=== PATIENT | male | born 1995 | race Hispanic/Latino ===

== ENCOUNTER 2020-03-12 14:03 | Outpatient (CLI) | payer OTHER, SELFPAY ==
--- NOTE | ~2020-03-12 | US_ITS ---
EXAMINATION: US soft tissue head and neck EXAM DATE: 03/12/2020 14:49 INDICATION: Cervical lymphadenopathy. Abnormal dental x-ray. TECHNIQUE: Multiple grayscale and Doppler images of the left side of the neck were obtained (by a eleazar hnologist who performed the scan) and subsequently reviewed. There is no prior study for comparison. FINDINGS: Several hypoechoic lesions most likely lymph nodes, measuring 1.6 x 0.7 x 1.3 cm, 2.7 x 0.6 x 1.2 cm, 2.4 x 0.8 x 1.0 cm. Some internal vascularity was confirmed, and there is absence of normal fatty hi lum as would be expected for reactive etiology. Other possibilities such as lymphoma should be consid ered. Recommend neck CT with contrast for further evaluation. IMPRESSION: Left-sided cervical lymphadenopathy, possible lymphoma or other malignancy. Recommend nec k CT with contrast for further evaluation. Consider ENT consult. Reviewed, dictated and finalized at location A. IMPRESSION: Left-sided cervical lymphadenopathy, possible lymphoma or other mal ignancy. Recommend neck CT with contrast for further evaluation. Consider ENT c onsult.
== END 2020-03-12 14:04 | disposition home or self-care (01) ==
LOC: ANHIMG 14:14
PROVIDERS: PCP Nurse Practitioner Family; Visit Provider Nurse Practitioner Family
DX: R59.0 Localized enlarged lymph nodes (principal)
CPT/HCPCS: 76536

== ENCOUNTER 2020-03-24 09:23 | Outpatient (CLI) | payer OTHER, SELFPAY ==
--- NOTE | ~2020-03-24 | CT_ITS ---
EXAMINATION: CT soft tissue neck w con DATE: 03/24/2020 09:51 INDICATION: Cervical lymphadenopathy. TECHNIQUE: Computed tomography (CT) of the neck was performed with 75 mL Omnipaque-350 intravenous co ntrast. Automated exposure control and iterative reconstruction technique were employed. The dose-ivan gth product was 402.55 mGy-cm. COMPARISON: Ultrasound 03/12/2020 FINDINGS: There are enlarged bilateral high internal jugular chain lymph nodes. For example, left jug ular digastric node measures 1.8 x 2.3 cm. The adenoids and palatine tonsils are enlarged. No abscess . There is a 7 mm sialolith at the superomedial aspect of left submandibular gland. There is mild muc osal thickening in left maxillary sinus. The mastoid air cells are normal. At C7-T1, there is mild bi lateral facet joint osteoarthritis. IMPRESSION: 1. Enlarged adenoids and palatine tonsils. No abscess. 2. Mild bilateral high internal jugular chain lymphadenopathy, which may be reactive. 3. Sialolith in left submandibular gland. Reviewed, dictated and finalized at location A. IMPRESSION: 1. Enlarged adenoids and palatine tonsils. No abscess. 2. Mild bilateral high internal jugular chain lymphadenopathy, which may be soniya ctive. 3. Sialolith in left submandibular gland.
== END 2020-03-24 09:24 ==
PROVIDERS: PCP Nurse Practitioner Family; Visit Provider Nurse Practitioner Family
DX: R59.0 Localized enlarged lymph nodes (principal); R93.0 Abnormal findings on diagnostic imaging of skull and head, not elsewhere classified; J35.3 Hypertrophy of tonsils with hypertrophy of adenoids
CPT/HCPCS: 70491; Q9967